=== PATIENT | female | born 1945 | race African-American/Black ===

== ENCOUNTER 2019-01-27 16:38 | Inpatient (IN) | payer OTHER ==
[2019-01-27] VITALS (17 sets, daily range): BP systolic 119–146; BP diastolic 59–78
[~2019-01-27] VITALS: Ht 165.1 cm; Wt 84.5 kg
[2019-01-27] MEDS ORDERED: METHYLPREDNISOLONE SOD SUCC 125 MG/2 ML VIAL IV STA (16:42)
[2019-01-27] MEDS ORDERED: MAGNESIUM 2 G PREMIX 50 ML IV STA (16:42)
[2019-01-27] MEDS ORDERED: ALBUTEROL (0.083%) 2.5MG/3ML NEB HHN STA (16:42)
[2019-01-27] MEDS ORDERED: IPRATROPIUM BROMIDE (0.02%) 0.5MG/2.5ML NEB HHN STA (16:42)
[2019-01-27] MEDS ORDERED: NALOXONE HCL 1 MG/ML 2ML VIAL ONE (16:42)
[2019-01-27] MEDS ORDERED: SUCCINYLCHOLINE CHLORIDE 200MG/10ML IV ONE ×2 (16:45→17:15)
[2019-01-27] MEDS ORDERED: SODIUM CHLORIDE 0.9% 10ML VIAL ONE (16:45)
[2019-01-27] MEDS ORDERED: VECURONIUM BROMIDE 10 MG/VIAL IV ONE ×2 (16:45→17:15)
[2019-01-27] MEDS ORDERED: NALOXONE HCL 1 MG/ML 2ML VIAL IV ONE (16:45)
[2019-01-27] MEDS ORDERED: LORAZEPAM 2MG/ML CPJ ONE (17:10)
[2019-01-27] MEDS ORDERED: PROPOFOL 10MG/ML 100ML 100 ML IV SCH (17:15)
[2019-01-27] MEDS ORDERED: LORAZEPAM 2MG/ML CPJ IV ONE (17:15)
[2019-01-27 17:20] LABS: BASOPHILS % 0.5 % (0.0-2.0); EOSINOPHILS % 0.5 % (0.0-5.0); HEMATOCRIT. 30.7 % (36.0-48.0); MEAN CORPUSCULAR HEMOGLOBIN 27.3 pg (28.0-32.0); MEAN CORPUSCULAR VOLUME 92.8 fL (81.0-99.0); MEAN PLATELET VOLUME 7.9 fl (7.4-10.4); MONOCYTES % 9.5 % (2.0-8.0); NEUTROPHILS % 72.5 % (40.0-76.0); PLATELET 271 x1000/uL (130-400); RED BLOOD CELL COUNT 3.31 mill/uL (4.2-5.4); RED CELL DISTRIBUTION WIDTH 18.4 % (11.6-14.6)
[2019-01-27 17:25] LABS: PROTHROMBIN TIME 10.3 sec (9.6-11.0)
[2019-01-27 17:27] LABS: CHLORIDE 103 mEq/L (98-107)
[2019-01-27 17:31] LABS: ETHANOL BLOOD < 10 mg/dL
[2019-01-27 17:49] LABS: BG BASE EXCESS 11.4 mmol/L (-2.0-2.0); BG CARBOXYHEMOGLOBIN 0.1 % (0.5-1.5); BG DEOXYHEMOGLOBIN 0.7 % (0.0-5.0); BG FRACTION INSPIRED OXYGEN 50; BG HCO3 ACT 37.8 mmol/L (22.0-26.0); BG METHEMOGLOBIN 0.2 % (0.0-1.5); BG OXYGEN SATURATION 99.3 % (92.0-98.5); BG PCO2 61.3 mmHg (35.0-45.0); BG PH 7.408 (7.350-7.450); BG PO2 210.3 mmHg (75.0-100.0); BG SAMPLE SITE RIGHT BRACHIAL; BG TIDAL VOLUME(mL) 550 mL; BG TOTAL HEMOGLOBIN 9.9 g/dL (12.0-18.0); BG VENT MODE VENT - A/C; BG VENT RATE 14 set
[2019-01-27] MEDS ORDERED: FUROSEMIDE 20MG/2ML VIAL IVP ONE (18:00)
[2019-01-27] MEDS ORDERED: DOCUSATE SODIUM 100MG CAPSULE PO PRN (18:15)
[2019-01-27] MEDS ORDERED: MAGNESIUM/ALUMINUM HYDROXIDE/SIMETHICONE 30ML UDC PO PRN (18:15)
[2019-01-27] MEDS ORDERED: CLONIDINE 0.1MG TABLET PO PRN (18:15)
[2019-01-27] MEDS ORDERED: GUAIFENESIN 200MG/10ML SUGAR FREE UDC PO PRN (18:15)
[2019-01-27] MEDS ORDERED: ONDANSETRON HCL 4MG/2ML INJ IV PRN (18:15)
[2019-01-27] MEDS ORDERED: ACETAMINOPHEN 325MG TABLET PO PRN (18:15)
[2019-01-27] MEDS ORDERED: IPRATROPIUM/ALBUTEROL 0.5-3(2.5)MG/3ML NEB NEB PRN (18:15)
[2019-01-27] MEDS ORDERED: ENOXAPARIN 40MG/0.4ML SYR SUBCUT SCH (18:15)
[2019-01-27] MEDS ORDERED: NITROGLYCERIN 0.4MG TABLET SL SL PRN (18:15)
[2019-01-27] MEDS ORDERED: IPRATROPIUM/ALBUTEROL 0.5-3(2.5)MG/3ML NEB HHN PRN (20:00)
[2019-01-27 20:27] LABS: CLARITY URINE CLOUDY (CLEAR); COLOR URINE YELLOW (YELLOW); KETONES URINE NEGATIVE (NEGATIVE); LEUKOCYTE ESTERASE URINE NEGATIVE (NEGATIVE); NITRITE URINE NEGATIVE (NEGATIVE); OCCULT BLOOD URINE 2+ (NEGATIVE); PROTEIN URINE 3+ (NEGATIVE); SPECIFIC GRAVITY URINE 1.014 (1.005-1.030); UROBILINOGEN URINE 0.2 E.U./dL (0.2-1.0)
[2019-01-27 20:39] LABS: *AMPHETAMINES SCREEN URINE NEGATIVE (NEGATIVE); *BARBITURATES SCREEN URINE NEGATIVE (NEGATIVE); CANNABINOID URINE SCREEN NEGATIVE (NEGATIVE)
[2019-01-27 20:40] LABS: *BENZODIAZEPINES SCREEN URINE NEGATIVE (NEGATIVE); *COCAINE SCREEN URINE NEGATIVE (NEGATIVE); METHADONE URINE SCREEN NEGATIVE (NEGATIVE); OPIATES URINE SCREEN NEGATIVE (NEGATIVE); PHENCYCLIDINE URINE SCREEN NEGATIVE (NEGATIVE)
[2019-01-27] MEDS: LISINOPRIL 20MG TABLET PO SCH (21:35)
[2019-01-27] MEDS: ENOXAPARIN 30MG/0.3ML SYR SUBCUT SCH (21:35)
[2019-01-27] MEDS: DEXT 5%/LACTATED RINGERS 1,000 ML IV SCH (21:38)
[2019-01-27 22:50] LABS: TOTAL IRON BINDING CAPACITY 362 ug/dL (250-450)
[2019-01-27] MEDS: PROPOFOL 10MG/ML 100ML 100 ML IV PRN (23:03)
[2019-01-27 23:15] LABS: VITAMIN B12 SERUM >2000 pg/mL pg/mL (211-911)
[2019-01-27] MEDS: PIPERACILLIN/TAZOBACTAM 3.375 G in DEXT 5% WATER 100 ML IV SCH (23:29)
[2019-01-28] VITALS (91 sets, daily range): BP systolic 114–162; BP diastolic 61–98
[2019-01-28] MEDS: IPRATROPIUM/ALBUTEROL 0.5-3(2.5)MG/3ML NEB HHN SCH ×6 (00:21→19:59)
[2019-01-28] MEDS: METHYLPREDNISOLONE SOD SUCC 125 MG/2 ML VIAL IV SCH ×3 (01:46→17:29)
[2019-01-28] MEDS: PROPOFOL 10MG/ML 100ML 100 ML IV PRN ×3 (05:38→20:23)
[2019-01-28] MEDS: PIPERACILLIN/TAZOBACTAM 3.375 G in DEXT 5% WATER 100 ML IV SCH (05:40)
[2019-01-28] MEDS: DEXT 5%/LACTATED RINGERS 1,000 ML IV SCH (07:25)
[2019-01-28 08:35] LABS: BG BASE EXCESS 11.2 mmol/L (-2.0-2.0); BG CARBOXYHEMOGLOBIN 0.3 % (0.5-1.5); BG DEOXYHEMOGLOBIN 1.3 % (0.0-5.0); BG FRACTION INSPIRED OXYGEN 40; BG HCO3 ACT 34.5 mmol/L (22.0-26.0); BG METHEMOGLOBIN 0.1 % (0.0-1.5); BG OXYGEN SATURATION 98.7 % (92.0-98.5); BG OXYHEMOGLOBIN 98.3 % (94.0-97.0); BG PCO2 40.3 mmHg (35.0-45.0); BG PO2 119.4 mmHg (75.0-100.0); BG SAMPLE SITE RIGHT BRACHIAL; BG TIDAL VOLUME(mL) 550 mL; BG TOTAL HEMOGLOBIN 9.7 g/dL (12.0-18.0); BG VENT MODE VENT - A/C; BG VENT RATE 14 set
[2019-01-28] MEDS ORDERED: ASPIRIN 325MG EC TABLET PO SCH (09:00)
[2019-01-28] MEDS: LISINOPRIL 20MG TABLET PO SCH ×2 (09:25→21:25)
[2019-01-28] MEDS: ENOXAPARIN 30MG/0.3ML SYR SUBCUT SCH ×2 (09:25→21:25)
[2019-01-28] MEDS: PANTOPRAZOLE SODIUM 40 MG/VIAL IV SCH (09:25)
[2019-01-28] MEDS: ASPIRIN 325MG TABLET PO SCH (10:01)
[2019-01-28] MEDS ORDERED: MORPHINE SULFATE 2 MG/ML CPJ (NOT FOR IM USE) IV PRN (11:00)
[2019-01-28] MEDS ORDERED: VANCOMYCIN 1,250 MG in DEXT 5% WATER 250 ML IV SCH (12:00)
[2019-01-28] MEDS: PIPERACILLIN/TAZOBACTAM 2.25 G in DEXTROSE 5% WATER 50 ML IV SCH ×3 (12:18→23:46)
[2019-01-28] MEDS ORDERED: PROPOFOL 10MG/ML 100ML 100 ML IV PRN (20:15)
[2019-01-29] VITALS (72 sets, daily range): BP systolic 107–152; BP diastolic 52–84
[2019-01-29] MEDS: IPRATROPIUM/ALBUTEROL 0.5-3(2.5)MG/3ML NEB HHN SCH ×5 (00:05→16:05)
[2019-01-29] MEDS: METHYLPREDNISOLONE SOD SUCC 125 MG/2 ML VIAL IV SCH ×3 (01:55→17:22)
[2019-01-29] MEDS: DEXT 5%/LACTATED RINGERS 1,000 ML IV SCH ×2 (03:18→10:44)
[2019-01-29] MEDS: PROPOFOL 10MG/ML 100ML 100 ML IV PRN ×4 (04:04→16:05)
[2019-01-29] MEDS: PIPERACILLIN/TAZOBACTAM 2.25 G in DEXTROSE 5% WATER 50 ML IV SCH ×2 (05:29→12:34)
[2019-01-29 05:58] LABS: HEMATOCRIT. 28.4 % (36.0-48.0); HEMOGLOBIN. 9.2 g/dL (12.0-16.0); MEAN CORPUSCULAR HEMOGLOBIN 28.2 pg (28.0-32.0); MEAN CORPUSCULAR VOLUME 87.4 fL (81.0-99.0); MEAN PLATELET VOLUME 7.1 fl (7.4-10.4); PLATELET 237 x1000/uL (130-400); RED BLOOD CELL COUNT 3.25 mill/uL (4.2-5.4)
[2019-01-29] MEDS ORDERED: INSULIN REGULAR (HUMULIN R) 300UNITS/3ML SUBCUT ONE (07:30)
[2019-01-29] MEDS ORDERED: DEXTROSE 50% WATER 50ML SYRINGE IV PRN (07:30)
[2019-01-29] MEDS ORDERED: INSULIN LISPRO 100 UNITS/ML SUBCUT SCH (07:45)
[2019-01-29 07:47] LABS: NUCLEATED RED BLOOD CELLS 2 /100 WBC; PLATELET ESTIMATE NORMAL
[2019-01-29] MEDS: BLOOD SUGAR DIAGNOSTIC STRIP TEST SCH ×3 (07:51→17:34)
[2019-01-29] MEDS: INSULIN LISPRO 100 UNITS/ML SUBCUT SCH ×2 (08:26→12:34)
[2019-01-29] MEDS: PANTOPRAZOLE SODIUM 40 MG/VIAL IV SCH (08:36)
[2019-01-29] MEDS: ENOXAPARIN 30MG/0.3ML SYR SUBCUT SCH (08:36)
[2019-01-29] MEDS: ASPIRIN 325MG TABLET PO SCH (08:37)
[2019-01-29] MEDS: LISINOPRIL 20MG TABLET PO SCH (08:37)
[2019-01-29] MEDS ORDERED: VANCOMYCIN 1 G PREMIX 200 ML IV SCH (09:00)
[2019-01-29 11:46] LABS: BG BASE EXCESS 9.3 mmol/L (-2.0-2.0); BG CARBOXYHEMOGLOBIN 0.3 % (0.5-1.5); BG DEOXYHEMOGLOBIN 2.8 % (0.0-5.0); BG FRACTION INSPIRED OXYGEN 40; BG HCO3 ACT 34.4 mmol/L (22.0-26.0); BG METHEMOGLOBIN 0.1 % (0.0-1.5); BG OXYGEN SATURATION 97.2 % (92.0-98.5); BG OXYHEMOGLOBIN 96.8 % (94.0-97.0); BG PCO2 50.3 mmHg (35.0-45.0); BG PH 7.453 (7.350-7.450); BG PO2 93.7 mmHg (75.0-100.0); BG SAMPLE SITE RIGHT RADIAL; BG TIDAL VOLUME(mL) 550 mL; BG TOTAL HEMOGLOBIN 9.9 g/dL (12.0-18.0); BG VENT MODE VENT - A/C; BG VENT RATE 12 set
[2019-01-29] MEDS ORDERED: INSULIN GLARGINE UD 100 UNITS/ML SYR SUBCUT SCH (12:00)
[2019-01-29] MEDS ORDERED: FURO-152 MT (14:28)
[2019-01-29] MEDS ORDERED: LISI-604 MT (14:29)
[2019-01-29] MEDS ORDERED: SIMV40TA5 MT (14:30)
[2019-01-29] MEDS ORDERED: OMEP20CA5 PO (14:31)
[2019-01-29] MEDS ORDERED: ALBU6.7H9 INH (14:33)
[2019-01-29] MEDS ORDERED: FLUT1DIS3 INH (14:34)
[2019-01-29] MEDS ORDERED: TIOT18CA3 INH (14:36)
[2019-01-29] MEDS ORDERED: GLIP5TAB12 MT (14:46)
== END 2019-01-29 17:45 | disposition short-term general hospital (02) | DRG 208 ==
LOC: ER 16:38 → EDBEDREQ 16:46 → MICUSO 17:54 → EDBEDREQTM 17:58 → EDBEDREQ 17:58 → ENRESERV 18:56
PROVIDERS: ADMIT Internal Medicine; ATTEND Internal Medicine
PROC: 5A1945Z Respiratory Ventilation, 24-96 Consecutive Hours (ICD-10-PCS; principal; 2019-01-27)
PROC: 0BH17EZ Insertion of Endotracheal Airway into Trachea, Via Natural or Artificial Opening (ICD-10-PCS; 2019-01-27)
DX: J69.0 Pneumonitis due to inhalation of food and vomit (principal); J96.01 Acute respiratory failure with hypoxia; G92 Toxic encephalopathy; J96.02 Acute respiratory failure with hypercapnia; I16.1 Hypertensive emergency; J44.1 Chronic obstructive pulmonary disease with (acute) exacerbation; D72.829 Elevated white blood cell count, unspecified; E11.9 Type 2 diabetes mellitus without complications; E66.9 Obesity, unspecified; G47.33 Obstructive sleep apnea (adult) (pediatric); I10 Essential (primary) hypertension; Z78.1 Physical restraint status; Z79.4 Long term (current) use of insulin; Z79.899 Other long term (current) drug therapy; Z99.81 Dependence on supplemental oxygen
CPT/HCPCS: 36415; 36600; 71045; 80048; 80061; 80305; 80320; 81003; 82375; 82607; 82746; 82805; 82962; 83036; 83540; 83550; 83605; 83880; 84145; 84478; 84484; 87070; 93005; 93306; 93970; 94002; 94003; 94640; 96365; 99291; A6261; C9113; J0330; J1650; J1815; J1940; J2060; J2310; J2543; J2704; J2930; J3370; J3475; J3490; J7060; J7620; G0480